=== PATIENT | female | born 1955 | race Caucasian/White ===

== ENCOUNTER → 2021-05-18 | Outpatient (CLI) | payer MEDICARE, OTHER ==
--- NOTE | 2021-05-18 10:36 | RAD ---
Left shoulder 3 views, left humerus 2 views. HISTORY: Fell one week ago, pain Left humerus 2 views were taken of the left humerus. There is a comminuted fracture the proximal humerus. There is mild impaction along the fracture line. There are comminuted fragments at the greater tuberosity. Left shoulder 3 views were taken the left shoulder. There is a comminuted fracture of the proximal humerus. There i s no dislocation at the shoulder. IMPRESSION: 1. Comminuted fracture proximal left humerus. 2. No dislocation at the shoulder. 3. No other shoulder fracture. 4. No other humerus fracture. Electronically signed by: Jaden Gamble MD (05/18/2021 10:33 AM) [facility]
== END ==
LOC: RAD 09:42
PROVIDERS: ATTEND Internal Medicine
DX: S42.295A Other nondisplaced fracture of upper end of left humerus, initial encounter for closed fracture (principal); W07.XXXA Fall from chair, initial encounter
CPT/HCPCS: 73030; 73060